=== PATIENT | female | born 1970 | race Caucasian/White ===

== ENCOUNTER 2019-03-03 19:56 | Emergency (ER) | payer OTHER ==
--- NOTE | 2019-03-03 20:04 | ERPHSYRPT ---
- History of Present Illness Time Seen by Provider: 03/03/19 20:04 Source: patient, family Exam Limitations: no limitations Physician History: 48 y/o white female injured by tree limb and pt fell to the ground onto left outstretched hand. no head or neck injury. 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 Occurred: just prior to arrival Method of Injury: fell Quality: constant, aching Severity of Pain-Max: moderate Severity of Pain-Current: moderate Extremities Pain Location: forearm: left, wrist: left Modifying Factors: Improves With: immobilization (improves), movement (worsens) Associated Symptoms: none Allergies/Adverse Reactions: NEOSPORIN EYE DROPS Allergy (Uncoded 05/14/14 18:21) Swelling of Eyelids Hx Tetanus, Diphtheria Vaccination/Date Given: Yes Hx Influenza Vaccination/Date Given: No Hx Pneumococcal Vaccination/Date Given: No - Review of Systems Constitutional: No Symptoms Eyes: No Symptoms Ears, Nose, & Throat: No Symptoms Respiratory: No Symptoms Cardiac: No Symptoms Abdominal/Gastrointestinal: No Symptoms Genitourinary Symptoms: No Symptoms Musculoskeletal: Deformity (?), Fall, Injury Skin: No Symptoms Neurological: No Symptoms Psychological: No Symptoms Endocrine: No Symptoms Hematologic/Lymphatic: No Symptoms Immunological/Allergic: No Symptoms All Other Systems: Reviewed and Negative - Past Medical History Pertinent Past Medical History: Yes Neurological History: No Pertinent History ENT History: No Pertinent History Cardiac History: Hypertension Respiratory History: No Pertinent History Endocrine Medical History: No Pertinent History Musculoskeletal History: No Pertinent History GI Medical History: GERD History: No Pertinent History Psycho-Social History: No Pertinent History Female Reproductive Disorders: No Pertinent History - Past Surgical History Past Surgical History: Yes Neuro Surgical History: No Pertinent History Cardiac: No Pertinent History Respiratory: No Pertinent History Gastrointestinal: Cholecystectomy, Hernia Repair Genitourinary: No Pertinent History Musculoskeletal: No Pertinent History Female Surgical History: Hysterectomy Other Surgical History: 2011 GALLBLADDER - Social History Smoking Status: Never smoker Exposure to second hand smoke: Yes Drug Use: none Patient Lives Alone: No - Nursing Vital Signs Nursing Vital Signs: Initial Vital Signs Temperature 97.6 F 03/03/19 20:05 Pulse Rate 60 03/03/19 20:05 Respiratory Rate 19 03/03/19 20:05 Blood Pressure 88/58 03/03/19 20:05 O2 Sat by Pulse Oximetry 96 03/03/19 20:05 Pain Scale Pain Intensity 10 - Physical Exam General Appearance: mild distress, alert, anxiety Eyes, Ears, Nose, Throat Exam: normal ENT inspection, moist mucous membranes Neck Exam: normal inspection, non-tender, supple, full range of motion Cardiovascular/Respiratory Exam: no respiratory distress, No chest non-tender Abdominal Exam: non-tender Back Exam: normal inspection Shoulder Exam: normal inspection Elbow/Forearm Exam: normal inspection, non-tender, no evidence of injury, normal ROM Wrist Exam: bone tenderness, deformity, limited ROM, soft tissue tenderness, swelling Hand Exam: normal inspection, non-tender, no evidence of injury, normal ROM Neuro/Tendon Exam: normal sensation, normal motor functions, normal tendon functions, responds to pain, no evidence tendon injury Mental Status Exam: alert, oriented x 3, cooperative Skin Exam: normal color, warm SpO2 Interpretation: normal O2 Delivery: Room Air Procedures - Splinting Location of Splint: Left, Wrist Type of Splint: Orthoglass Short Arm Splint Splint Applied By: ED Nurse Pre-Proc Neuro Vasc Exam: normal Post-Proc Neuro Vasc Exam: neurovascular intact - Course Nursing assessment & vital signs reviewed: Yes Ordered Tests: Active Orders 24 hr Category Date Time Status FOREARM Stat Exams 03/03/19 20:04 Ordered WRIST (MIN 3 VIEWS) Stat Exams 03/03/19 20:04 Ordered - Progress Progress: improved, pain not gone completely, re-examined Progress Note: 03/03/19 20:43 left wrist xray-minimally displaced fx of distal radius Counseled pt/family regarding: diagnosis, need for follow-up, rad results - Departure Departure Disposition: Home Clinical Impression: Distal radius fracture, left Condition: Stable Critical Care Time: No Referrals: DOCTOR,NO FAMILY [Primary Care Provider] - [facility] - [facility] [NON-STAFF PHY W/O PRIVILEGES] - [facility]-Ortho M-F [phone] Additional Instructions: ice pack to area 3 times daily for 2 days. follow up tomorrow at [facility] at 0800 am for further management Prescriptions: Oxycodone HCl/Acetaminophen [Percocet 5-325 mg Tablet] 1 each PO Q8H PRN PRN #6 tablet MDD 3 PRN Reason: Pain
[2019-03-03] MEDS ORDERED: PERCOCET TABLET 5/325MG PO STA ×2 (20:50→20:51)
[2019-03-03 22:00] VITALS: PULSE 104
[2019-03-03] MEDS ORDERED: PERCOCET TABLET 5/325MG ONE (22:03)
[2019-03-03 22:13] VITALS: BP 128/86; O2SAT 99
--- NOTE | 2019-03-04 09:10 | XRAY ---
Indication: Pain following fall. Comparison: None 3 views of the left wrist demonstrates nondisplaced comminuted fracture involving the distal radius with intra-articular extension and soft tissue swelling. No other bony, articular, or soft tissue abnormalities.
--- NOTE | 2019-03-04 09:10 | XRAY ---
Indication: Wrist pain following fall. Comparison: None 2 views of the left forearm demonstrates distal radial fracture reported separately on same day wrist exam. No other bony, articular, or soft tissue abnormalities.
== END 2019-03-03 22:20 | disposition home or self-care (01) ==
LOC: ED 19:56
DX: S52.502A Unspecified fracture of the lower end of left radius, initial encounter for closed fracture (principal); W14.XXXA Fall from tree, initial encounter; Y92.89 Other specified places as the place of occurrence of the external cause
CPT/HCPCS: 29126; 73090; 73110; 99284; A9270-GY

== ENCOUNTER 2021-06-17 01:35 | Emergency (ER) | payer OTHER ==
[2021-06-17] MEDS ORDERED: ZOVIRAX 800 MG PO ONE (01:53)
[2021-06-17 01:58] VITALS: BP 184/115; PULSE 110; O2SAT 100
--- NOTE | 2021-06-17 02:00 | ERPHSYRPT ---
- History of Present Illness Time Seen by Provider: 06/17/21 01:56 Source: patient Exam Limitations: no limitations Physician History: Patient is 51-year-old female started having back pain 1 week ago and yesterday she broke out into the rest which was on the left side of the L2-L3 dermatome. She denies any fever chills nausea or vomiting. Skin rash is somewhat painful but no blisters. Timing/Duration: yesterday Quality: burning, painful Severity: mild Location: torso Possible Causes: no cause identified Associated Symptoms: denies symptoms Allergies/Adverse Reactions: NEOSPORIN EYE DROPS Allergy (Uncoded 06/17/21 01:42) Swelling of Eyelids Hx Tetanus, Diphtheria Vaccination/Date Given: Yes Hx Influenza Vaccination/Date Given: No Hx Pneumococcal Vaccination/Date Given: No - Review of Systems Constitutional: No Fever, No Chills Eyes: No Symptoms Ears, Nose, & Throat: No Symptoms Respiratory: No Cough, No Dyspnea Cardiac: No Chest Pain, No Edema, No Syncope Abdominal/Gastrointestinal: No Abdominal Pain, No Nausea, No Vomiting, No Diarrh ea Genitourinary Symptoms: No Dysuria Musculoskeletal: No Back Pain, No Neck Pain Skin: Rash Neurological: No Dizziness, No Focal Weakness, No Sensory Changes Psychological: No Symptoms Endocrine: No Symptoms All Other Systems: Reviewed and Negative - Past Medical History Pertinent Past Medical History: Yes Neurological History: No Pertinent History ENT History: No Pertinent History Cardiac History: Hypertension Respiratory History: No Pertinent History Endocrine Medical History: No Pertinent History Musculoskeletal History: No Pertinent History GI Medical History: GERD History: No Pertinent History Psycho-Social History: No Pertinent History Female Reproductive Disorders: No Pertinent History - Past Surgical History Past Surgical History: Yes Neuro Surgical History: No Pertinent History Cardiac: No Pertinent History Respiratory: No Pertinent History Gastrointestinal: Cholecystectomy, Hernia Repair Genitourinary: No Pertinent History Musculoskeletal: No Pertinent History Female Surgical History: Hysterectomy Other Surgical History: 2011 GALLBLADDER - Social History Smoking Status: Never smoker How long have you smoked: 20 yrs Exposure to second hand smoke: Yes Drug Use: none Patient Lives Alone: No - Physical Exam General Appearance: no apparent distress, alert Eye Exam: PERRL/EOMI, eyes nml inspection Ears, Nose, Throat Exam: normal ENT inspection, pharynx normal, moist mucous membranes Neck Exam: normal inspection, non-tender, supple, full range of motion Respiratory Exam: normal breath sounds, lungs clear, No respiratory distress Cardiovascular Exam: regular rate/rhythm, normal heart sounds Gastrointestinal/Abdomen Exam: soft, mass, No tenderness Back Exam: normal inspection, normal range of motion, No CVA tenderness, No vertebral tenderness Extremity Exam: normal inspection, normal range of motion Neurologic Exam: alert, oriented x 3, cooperative, normal mood/affect, sensation nml, No motor deficits Skin Exam: normal color, warm, dry, rash - Course Nursing assessment & vital signs reviewed: Yes Ordered Tests: Medication Summary Discontinued Medications Generic Name Dose Route Start Last Admin Trade Name Freq PRN Reason Stop Dose Admin Acyclovir 800 mg 06/17/21 01:53 Acyclovir 800 Mg Tablet PO 06/17/21 01:54 5XD ONE - Progress Progress: unchanged Counseled pt/family regarding: diagnosis, need for follow-up - Departure Departure Disposition: Home Clinical Impression: Shingles rash Qualifiers: Herpes zoster complications: without complications Qualified Code(s): B02.9 - Zoster without complications Condition: Stable Critical Care Time: No Referrals: DEBORAH WISE [Primary Care Provider] - Follow up/PCP as directed Instructions: Shingles (DC) Additional Instructions: Discharge/Care Plan STEWART CAMACHO was seen on 06/17/21 in the Emergency Room. The patient was counseled regarding Diagnosis,Lab results, Imaging studies, need for follow up and when to return to the Emergency Room. Prescriptions given: Discharge Note I have spoken with the patient and/or caregivers. I have explained the patient's condition, diagnosis and treatment plan based on the information available to me at this time. I have answered the patient's and/or caregiver's questions and addressed any concerns. The patient and/or caregivers have as good understanding of the patient's diagnosis, condition and treatment plan as can be expected at this point. The vital signs have been stable. The patient's condition is stable and appropriate for discharge from the emergency department. The patient will pursue further outpatient evaluation with the primary care physician or other designated or consulting physician as outlined in the discharge instructions. The patient and/or caregivers are agreeable to this plan of care and follow-up instructions have been explained in detail. The patient and/or caregivers have received these instruction. The patient/and or caregivers are aware that any significant change in condition or worsening of symptoms should prompt an immediate return to this or the closest emergency department or call 911. STEWART CAMACHO was seen on 06/17/21 n the Emergency Room. At that time you were treated for an emergent condition, during your visit Laboratory, Radiology and/or other procedures may have been ordered. It is very important that you follow-up with your Primary Care Physician DEBORAH WISE within the next 24-48 hours to review your Emergency Room visit and the final results of testing that was ordered. Some test results such as Urine Cultures, Blood Cultures, and other cultures if ordered will not be finalized for 24-48 hours. If you do not have a Primary Care Provider please call the medical records department at [phone] ext [phone] to obtain a copy of your results or you may sign into our patient portal to obtain these results by visiting us @ [email or web address] and completing the following steps: 1. Click on the Patient Portal link 2. Click the Patient Self Enrollment Link to complete the enrollment form and entering your 3. Once the enrollment form is completed you will receive an email with a temporary ID and password at the email address you provided. 4. Next choose a user name and password. Your user name must be at least 4 characters long and your password must be at least 4 characters long. 5. Choose a security question from the list and provide your answer to the question. If you already have signed into the Health Portal you may access your Health Care Information 16/12 by the following steps: 1. Login to our website @ [email or web address] 2. Enter your original user name and password. FAQS The [facility] Health Portal is an online tool that contains your Lab Results, Radiology Reports, Visit History, Discharge Instructions and Health Summary Lab and Radiology Results will not be available for 72 hours on the portal. The Portal is a secure site, passwords are encryted and URLs are re-written so they cannot be copied and pasted. You and authorized family members are the only ones who can access your Portal. Also there is a timeout feature that protects your information if you leave the Portal page open. If you have technical difficulty please use the Contact Us link on the page this will allow you to submit any questions you have regarding the Portal or you may contact the Medical Record Department at [phone] ext [phone]. Prescriptions: Acyclovir 800 mg [Zovirax 800 mg] 800 mg PO TID #30 tablet
[2021-06-17] MEDS ORDERED: ZOVIRAX 200 MG ONE (02:01)
== END 2021-06-17 02:07 | disposition home or self-care (01) ==
LOC: ED 01:35
DX: B02.9 Zoster without complications (principal); R21 Rash and other nonspecific skin eruption; M54.9 Dorsalgia, unspecified; I10 Essential (primary) hypertension
CPT/HCPCS: 99283; A9270-GY

== ENCOUNTER 2022-10-29 14:55 | Emergency (ER) | payer OTHER ==
--- NOTE | 2022-10-29 18:19 | ERPHSYRPT ---
- History of Present Illness Time Seen by Provider: 10/29/22 18:13 Source: patient Exam Limitations: no limitations Patient Subjective Stated Complaint: pt jammed her pinky finger into a door and thinks she broke it Triage Nursing Assessment: Pt was brought to the ER by her , hypertension, rates pain as 7/10, right pinky finger bruised and swollen all the way up and unable to straighten, cap refill good, pulses normal, denies any other injuries Physician History: Patient is a 52-year-old female presents to our ED for evaluation of pain to her right fifth digit. Pain specifically at the right PIP joints. Patient states she jammed her finger on a door. Injury occurred just prior to arrival. Pain described as an ache that is localized. No radiation. Pain worse with movement and palpation. Pain minimal at rest. Patient declined pain medication. No other injuries reported. Patient states is otherwise healthy. She voices no other complaints or concerns at this time. Portions of this note were created with voice recognition technology. There may be grammatical, spelling, punctuation or sound alike errors Timing/Duration: today Severity: moderate Modifying Factors: Improves With: movement Associated Symptoms: denies symptoms Allergies/Adverse Reactions: NEOSPORIN EYE DROPS Allergy (Uncoded 10/29/22 17:38) Swelling of Eyelids Home Medications: Omeprazole Magnesium 20 mg PO DAILY 10/29/22 [History] Hx Tetanus, Diphtheria Vaccination/Date Given: Yes Hx Influenza Vaccination/Date Given: No Hx Pneumococcal Vaccination/Date Given: No Travel Risk - International Travel Have you traveled outside of the country in past 3 weeks: No - Coronavirus Screening Are you exhibiting any of the following symptoms?: No Close contact with a COVID-19 positive Pt in past 14-21 Days: No - Vaccine Status Have you recieved a Covid-19 vaccination: Yes Clinic Director: [employer] Constitutional: No Symptoms, No Fever, No Chills Eyes: No Symptoms Ears, Nose, & Throat: No Symptoms Respiratory: No Symptoms, No Cough, No Dyspnea Cardiac: No Symptoms, No Chest Pain, No Edema, No Syncope Abdominal/Gastrointestinal: No Symptoms, No Abdominal Pain, No Nausea, No Vomiting, No Diarrhea Genitourinary Symptoms: No Symptoms, No Dysuria Musculoskeletal: No Symptoms, No Back Pain, No Neck Pain Skin: No Symptoms, No Rash Neurological: No Symptoms, No Dizziness, No Focal Weakness, No Sensory Changes Psychological: No Symptoms Endocrine: No Symptoms Hematologic/Lymphatic: No Symptoms Immunological/Allergic: No Symptoms All Other Systems: Reviewed and Negative - Past Medical History Pertinent Past Medical History: Yes Neurological History: No Pertinent History ENT History: No Pertinent History Cardiac History: Hypertension Respiratory History: No Pertinent History Endocrine Medical History: No Pertinent History Musculoskeletal History: No Pertinent History GI Medical History: GERD History: No Pertinent History Psycho-Social History: No Pertinent History Female Reproductive Disorders: No Pertinent History - Past Surgical History Past Surgical History: Yes Neuro Surgical History: No Pertinent History Cardiac: No Pertinent History Respiratory: No Pertinent History Gastrointestinal: Cholecystectomy, Hernia Repair Genitourinary: No Pertinent History Musculoskeletal: No Pertinent History Female Surgical History: Hysterectomy Other Surgical History: 2011 GALLBLADDER - Social History Smoking Status: Never smoker How long have you smoked: 20 yrs Exposure to second hand smoke: Yes Drug Use: none Patient Lives Alone: No - Nursing Vital Signs Nursing Vital Signs: Initial Vital Signs Temperature 98.1 F 10/29/22 17:29 Pulse Rate 90 10/29/22 17:29 Blood Pressure 170/89 10/29/22 17:29 O2 Sat by Pulse Oximetry 96 10/29/22 17:29 Pain Scale Pain Intensity 7 - Physical Exam General Appearance: no apparent distress, alert Eye Exam: PERRL/EOMI, eyes nml inspection Ears, Nose, Throat Exam: normal ENT inspection, TMs normal, pharynx normal, moist mucous membranes Neck Exam: normal inspection, non-tender, supple, full range of motion Respiratory Exam: normal breath sounds, lungs clear, airway intact, No respiratory distress Cardiovascular Exam: regular rate/rhythm, normal heart sounds, normal peripheral pulses Gastrointestinal/Abdomen Exam: soft, normal bowel sounds, No tenderness, No mass Back Exam: normal inspection, normal range of motion, No CVA tenderness, No vertebral tenderness Extremity Exam: normal inspection, normal range of motion, pelvis stable, other (Swelling and tenderness at the PIP joint of the right fifth digit. There is some bruising noted. The digit is neurovascular intact distally. Compartments are soft. Cap refill less than 2 seconds. Digit is warm pink well perfused. No open or draining lesions.) Neurologic Exam: alert, oriented x 3, cooperative, normal mood/affect, nml cerebellar function, nml station & gait, sensation nml, No motor deficits Skin Exam: normal color, warm, dry, No rash Lymphatic Exam: No adenopathy SpO2 Interpretation: normal SpO2: 96 O2 Delivery: Room Air - Course Nursing assessment & vital signs reviewed: Yes - Radiology Exams Other X-ray Interpretation: Interpreted by me (There is a fracture at the dorsal aspect of the proximal middle phalanx right fifth digit.) Ordered Tests: Active Orders 24 hr Category Date Time Status FINGER(S) Stat Exams 10/29/22 17:40 Taken - Progress Progress: improved Progress Note: Patient is a 52-year-old female presents to our ED for evaluation of pain to her right fifth digit. Patient jammed her finger on a door. Patient has pain at the right PIP joint. Physical exam reveals a swollen bruised tender PIP joint. No open or draining lesions. The digits neurovascular intact distally. X-ray reveals a fracture of the right PIP joint. Patient declined pain medication. Patient's involved digit placed in a splint. Patient referred to orthopedic clinic. Digit neurovascular intact distally post splint application. Patient agrees to follow-up with orthopedic clinic tomorrow for further evaluation and treatment. Patient voices no other complaints or concerns at this time. Portions of this note were created with voice recognition technology. There may be grammatical, spelling, punctuation or sound alike errors Complexity of problem addressed is low acute uncomplicated Complexity of data reviewed and analyzed is moderate. Dr. Parish ordered and independently reviewed x-ray of the involved digit. A diagnosis of 1/5 digit fracture of the proximal aspect of the middle phalanx observed. Risk of complication and or risk morbidity/mortality patient management is low. Patient placed in AlumaFoam splint and referred to orthopedic clinic for follow-up. Patient referred to orthopedic clinic. Time spent to discharge patient is approximately 10 minutes. Vital stable. No social determinants of health present to impede follow-up. Portions of this note were created with voice recognition technology. There may be grammatical, spelling, punctuation or sound alike errors 10/29/22 18:18 Counseled pt/family regarding: diagnosis, need for follow-up, rad results - Departure Departure Disposition: Home Clinical Impression: Finger fracture, right Condition: Stable Critical Care Time: No Critical Care Time(excluding separately billable procedures): Critical 30-74 mins Referrals: DEBORAH WISE [Primary Care Provider] - Follow up/PCP as directed Additional Instructions: Discharge/Care Plan STEWART CAMACHO was seen on 10/29/22 in the Emergency Room. The patient was counseled regarding Diagnosis,Lab results, Imaging studies, need for follow up and when to return to the Emergency Room. Prescriptions given: Discharge Note I have spoken with the patient and/or caregivers. I have explained the patient's condition, diagnosis and treatment plan based on the information available to me at this time. I have answered the patient's and/or caregiver's questions and addressed any concerns. The patient and/or caregivers have as good understanding of the patient's diagnosis, condition and treatment plan as can be expected at this point. The vital signs have been stable. The patient's condition is stable and appropriate for discharge from the emergency department. The patient will pursue further outpatient evaluation with the primary care physician or other designated or consulting physician as outlined in the discharge instructions. The patient and/or caregivers are agreeable to this plan of care and follow-up instructions have been explained in detail. The patient and/or caregivers have received these instruction. The patient/and or caregivers are aware that any significant change in condition or worsening of symptoms should prompt an immediate return to this or the closest emergency department or call 911. Outpatient Orders: Ortho Referral Time Frame: 1 Day, Facility: [facility], Location: [facility]
[2022-10-29] MEDS ORDERED: TORAdol 30 mg Injection ONE (18:29)
[2022-10-29] MEDS ORDERED: TORAdol 30 mg Injection IM ONE (18:29)
[2022-10-29 19:11] VITALS: BP 144/82; PULSE 81; O2SAT 98
--- NOTE | 2022-10-29 19:32 | XRAY ---
CLINICAL HISTORY:Pain; COMPARISON:None; TECHNIQUES:X-ray of the right 5th finger showing 3 views: AP, oblique and lateral views; FINDINGS: There is an oblique radiolucency at the base of the middle phalanx of the right 5th finger, with articular involvement, better appreciated in lateral view. These findings are suggestive of a fracture. Normal bone mineralization. Cortical margins of the osseous structures are within normal limits. Normal metacarpophalangeal and interphalangeal joints. Soft tissues appear swollen around the 5th finger. IMPRESSION: Non-displaced fracture with articular involvement of the right middle phalanx of the 5th finger. DISCLAIMER: A subtle bone abnormality or fracture may not be readily apparent on x-rays, thus clinical correlation and further imaging including follow up CT, MRI, or follow up x-rays are advised as needed. The [facility] ER was called [phone] at 06:14 PM DIGITAL ASSET SPECIALIST, Dated 10/29/2022 and significant results were verbally communicated to Koffi Eid. Electronically Signed by: Darien Adhikari MD. (10/29/2022 18:24:05 DIGITAL ASSET SPECIALIST;)
== END 2022-10-29 19:11 | disposition home or self-care (01) ==
LOC: ED 14:55
DX: S62.626A Displaced fracture of middle phalanx of right little finger, initial encounter for closed fracture (principal); W22.8XXA Striking against or struck by other objects, initial encounter; I10 Essential (primary) hypertension
CPT/HCPCS: 73140; 96372; 99283; 99291; J1885